=== PATIENT | female | born 1950 | race Two or more races ===

== ENCOUNTER 2019-03-28 06:31 | Emergency (ER) | payer MEDICARE ==
[~2019-03-28] VITALS: Ht 154.9 cm; Wt 64.0 kg
[2019-03-28 06:56] VITALS: BP 116/72
== END 2019-03-28 09:24 | disposition home or self-care (01) ==
LOC: ER 06:31
DX: J06.9 Acute upper respiratory infection, unspecified (principal); I10 Essential (primary) hypertension
CPT/HCPCS: 71045; 99283

== ENCOUNTER 2019-06-19 18:28 | Emergency (ER) | payer MEDICARE, OTHER ==
[~2019-06-19] VITALS: Ht 154.9 cm; Wt 67.3 kg
[2019-06-19] MEDS ORDERED: KETOROLAC 30MG/ML VIAL IV STA (20:23)
[2019-06-19] MEDS ORDERED: SODIUM CHLORIDE 0.9% 500 ML IV ONE (20:30)
[2019-06-19 21:44] LABS: BASOPHILS % 0.9 % (0.0-2.0); EOSINOPHILS % 5.4 % (0.0-5.0); HEMATOCRIT. 38.2 % (36.0-48.0); LYMPHOCYTES % 29.7 % (20.0-50.0); MEAN CORPUSCULAR HEMOGLOBIN 30.1 pg (28.0-32.0); MEAN CORPUSCULAR VOLUME 88.4 fL (81.0-99.0); MEAN PLATELET VOLUME 8.9 fl (7.4-10.4); MONOCYTES % 12.9 % (2.0-8.0); NEUTROPHILS % 51.1 % (40.0-76.0); PLATELET 232 x1000/uL (130-400); RED BLOOD CELL COUNT 4.32 mill/uL (4.2-5.4); RED CELL DISTRIBUTION WIDTH 13.7 % (11.6-14.6)
[2019-06-19 22:03] LABS: CHLORIDE 112 mEq/L (98-107)
[2019-06-19] MEDS ORDERED: HYDROCODONE/ACETAMINOPHEN 5/325MG TABLET PO SCH (22:30)
[2019-06-20 02:55] VITALS: BP 128/68
== END 2019-06-20 03:17 | disposition home or self-care (01) ==
LOC: ER 18:28
DX: M79.7 Fibromyalgia (principal); M54.2 Cervicalgia; M79.604 Pain in right leg; M79.605 Pain in left leg; M25.552 Pain in left hip; M25.551 Pain in right hip; R10.9 Unspecified abdominal pain; I10 Essential (primary) hypertension; Z98.890 Other specified postprocedural states
CPT/HCPCS: 36415; 71045; 80053; 83880; 84484; 85025; 93005; 96374; 99284; J1885; J7040

== ENCOUNTER 2019-08-29 10:16 | Emergency (ER) | payer MEDICARE, OTHER ==
[~2019-08-29] VITALS: Ht 152.4 cm; Wt 62.0 kg
[2019-08-29] MEDS ORDERED: LIDOCAINE 1%/EPI 1:100,000 10 ML VIAL IJ ONE (12:15)
[2019-08-29] MEDS ORDERED: HYDROCODONE/ACETAMINOPHEN 5/325MG TABLET PO ONE (12:15)
[2019-08-29 13:04] LABS: BASOPHILS % 0.7 % (0.0-2.0); EOSINOPHILS % 0.8 % (0.0-5.0); HEMATOCRIT. 40.5 % (36.0-48.0); LYMPHOCYTES % 20.3 % (20.0-50.0); MEAN CORPUSCULAR HEMOGLOBIN 30.3 pg (28.0-32.0); MEAN CORPUSCULAR VOLUME 87.4 fL (81.0-99.0); MEAN PLATELET VOLUME 9.8 fl (7.4-10.4); MONOCYTES % 12.9 % (2.0-8.0); NEUTROPHILS % 65.3 % (40.0-76.0); PLATELET 228 x1000/uL (130-400); RED BLOOD CELL COUNT 4.63 mill/uL (4.2-5.4); RED CELL DISTRIBUTION WIDTH 14.2 % (11.6-14.6)
[2019-08-29 13:10] LABS: CHLORIDE 109 mEq/L (98-107)
[2019-08-29] MEDS ORDERED: LIDOCAINE HCL/EPINEPHRINE 1%-EPI 1:100,000 20 ML VIAL INFIL NR (13:15)
[2019-08-29 14:45] LABS: PROTHROMBIN TIME 10.4 sec (9.6-11.0)
[2019-08-29 16:09] LABS: CLARITY URINE CLEAR (CLEAR); COLOR URINE YELLOW (YELLOW); KETONES URINE NEGATIVE (NEGATIVE); LEUKOCYTE ESTERASE URINE 1+ (NEGATIVE); NITRITE URINE NEGATIVE (NEGATIVE); OCCULT BLOOD URINE NEGATIVE (NEGATIVE); PH URINE 7.5 (4.5-8.0); PROTEIN URINE NEGATIVE (NEGATIVE); SPECIFIC GRAVITY URINE 1.008 (1.005-1.030); UROBILINOGEN URINE 0.2 E.U./dL (0.2-1.0)
[2019-08-29] MEDS ORDERED: CEFTRIAXONE 1 G PREMIX 50 ML IV NR (16:45)
[2019-08-29] MEDS ORDERED: KETOROLAC 30MG/ML VIAL IM ONE (20:00)
[2019-08-29 20:08] VITALS: BP 127/61
== END 2019-08-29 20:22 | disposition home or self-care (01) ==
LOC: ER 10:16
DX: M25.571 Pain in right ankle and joints of right foot (principal); M11.271 Other chondrocalcinosis, right ankle and foot; M79.671 Pain in right foot; M79.10 Myalgia, unspecified site; R10.30 Lower abdominal pain, unspecified; I10 Essential (primary) hypertension; Z90.49 Acquired absence of other specified parts of digestive tract
CPT/HCPCS: 36415; 73610; 80053; 81003; 84550; 85025; 85610; 85651; 86140; 87070; 87205; 89050; 89060; 96365; 96372; 99284; J0696; J1885; J3490

== ENCOUNTER 2020-08-16 15:14 | Emergency (ER) | payer BC, OTHER ==
[~2020-08-16] VITALS: Ht 154.9 cm; Wt 68.0 kg
[2020-08-16 17:36] LABS: BASOPHILS % 1.3 % (0.0-2.0); EOSINOPHILS % 2.2 % (0.0-5.0); HEMATOCRIT. 40.6 % (36.0-48.0); HEMOGLOBIN. 14.1 g/dL (12.0-16.0); LYMPHOCYTES % 22.3 % (20.0-50.0); MEAN CORPUSCULAR HEMOGLOBIN 30.7 pg (28.0-32.0); MEAN PLATELET VOLUME 10.3 fl (7.4-10.4); MONOCYTES % 9.9 % (2.0-8.0); NEUTROPHILS % 64.3 % (40.0-76.0); PLATELET 226 x1000/uL (130-400); RED BLOOD CELL COUNT 4.61 mill/uL (4.2-5.4); RED CELL DISTRIBUTION WIDTH 13.3 % (11.6-14.6)
[2020-08-16 17:39] LABS: CHLORIDE 110 mEq/L (98-107)
[2020-08-16] MEDS ORDERED: IBUPROFEN 600MG TABLET PO ONE (19:30)
[2020-08-16] MEDS ORDERED: TRAMADOL 50MG TABLET PO ONE (19:30)
[2020-08-16 20:01] VITALS: BP 164/89
== END 2020-08-16 20:15 | disposition home or self-care (01) ==
LOC: ER 15:14
DX: M06.9 Rheumatoid arthritis, unspecified (principal); M79.7 Fibromyalgia; I10 Essential (primary) hypertension; Z90.49 Acquired absence of other specified parts of digestive tract
CPT/HCPCS: 36415; 80048; 85025; 99283

== ENCOUNTER 2021-07-05 20:26 | Emergency (ER) | payer BC, MEDICARE, OTHER ==
[~2021-07-05] VITALS: Ht 162.6 cm; Wt 70.0 kg
[2021-07-05 22:30] LABS: CLARITY URINE CLEAR (CLEAR); COLOR URINE YELLOW (YELLOW); KETONES URINE NEGATIVE (NEGATIVE); LEUKOCYTE ESTERASE URINE NEGATIVE (NEGATIVE); NITRITE URINE NEGATIVE (NEGATIVE); OCCULT BLOOD URINE NEGATIVE (NEGATIVE); PH URINE 7.5 (4.5-8.0); PROTEIN URINE NEGATIVE (NEGATIVE); SPECIFIC GRAVITY URINE 1.006 (1.005-1.030); UROBILINOGEN URINE 0.2 E.U./dL (0.2-1.0)
[2021-07-05] MEDS: SODIUM CHLORIDE 0.9% 1,000 ML IV ONE (22:36)
[2021-07-05 22:54] LABS: BASOPHILS % 0.8 % (0.0-2.0); EOSINOPHILS % 0.2 % (0.0-5.0); HEMATOCRIT. 39.9 % (36.0-48.0); HEMOGLOBIN. 13.7 g/dL (12.0-16.0); LYMPHOCYTES % 8.6 % (20.0-50.0); MEAN CORPUSCULAR VOLUME 90.5 fL (81.0-99.0); MEAN PLATELET VOLUME 8.9 fl (7.4-10.4); MONOCYTES % 8.8 % (2.0-8.0); NEUTROPHILS % 81.6 % (40.0-76.0); PLATELET 272 x1000/uL (130-400); RED BLOOD CELL COUNT 4.41 mill/uL (4.2-5.4); RED CELL DISTRIBUTION WIDTH 13.7 % (11.6-14.6)
[2021-07-05 23:00] LABS: CHLORIDE 110 mEq/L (98-107)
[2021-07-06] MEDS: ONDANSETRON HCL 4MG/2ML INJ IV STA (00:27)
[2021-07-06] MEDS: MORPHINE SULFATE 4 MG/ML CPJ (NOT FOR IM USE) IV STA (00:27)
[2021-07-06] MEDS ORDERED: BUTA-251 MT (01:08)
[2021-07-06 02:43] VITALS: BP 133/84
== END 2021-07-06 02:44 | disposition home or self-care (01) ==
LOC: ER 20:26
DX: R51.9 Headache, unspecified (principal); I16.0 Hypertensive urgency
CPT/HCPCS: 36415; 70450; 80053; 81003; 85025; 93005; 96361; 96374; 96375; 99285; J2270; J2405; J7030

== ENCOUNTER 2022-09-10 13:00 | Emergency (ER) | payer BC ==
[~2022-09-10] VITALS: Ht 162.6 cm; Wt 67.0 kg
[~2022-09-10 13:00] MED LIST: BUTA-251 MT
[2022-09-10 13:11] VITALS: BP 165/66
[2022-09-10] MEDS: ACETAMINOPHEN 325MG TABLET PO ONE (16:56)
== END 2022-09-10 19:03 | disposition home or self-care (01) ==
LOC: ER 13:00
DX: S00.93XA Contusion of unspecified part of head, initial encounter (principal); S10.93XA Contusion of unspecified part of neck, initial encounter; R51.9 Headache, unspecified; I10 Essential (primary) hypertension; W18.31XA Fall on same level due to stepping on an object, initial encounter; Y93.89 Activity, other specified; Y92.89 Other specified places as the place of occurrence of the external cause; Y99.8 Other external cause status
CPT/HCPCS: 71046; 71100; 73000; 73030; 73060; 73070; 99284